=== PATIENT | female | born 1960 | race Caucasian/White ===

== ENCOUNTER 2017-06-10 07:44 | Emergency (ER) | payer BC ==
[~2017-06-10] VITALS: Ht 160 cm; Wt 75.5 kg
[2017-06-10] MEDS ORDERED: FLEXERIL10 MG PO (11:27)
[2017-06-10 11:31] VITALS: BP 147/82
== END 2017-06-10 11:43 | disposition home or self-care (01) ==
LOC: EME 07:44
DX: M54.16 Radiculopathy, lumbar region (principal)
CPT/HCPCS: 72131; 99281; 99285; J2270; J3010

== ENCOUNTER → 2017-06-16 | Outpatient (CLI) | payer BC ==
[~2017-06-16] MED LIST: FLEXERIL10 MG PO; HYZAAR 100-11 TABLET PO; IMODIUM A-D2 M2 PO; LYRICA100 MG PO; MULTIPLE VITAM1 EAC1 PO; OXYCODONE-ACET1 EACH PO; VITAMIN D35000 UNIT PO; XANAX0.25 MG PO
== END | disposition home or self-care (01) ==
LOC: CDC 14:02
DX: Z01.810 Encounter for preprocedural cardiovascular examination (principal); M54.16 Radiculopathy, lumbar region; R94.31 Abnormal electrocardiogram [ECG] [EKG]
CPT/HCPCS: 93000

== ENCOUNTER 2017-06-17 12:49 | Day surgery (SDC) | payer BC ==
[~2017-06-17] VITALS: Ht 154.9 cm; Wt 73.9 kg
[2017-06-17 13:50] VITALS: BP 138/67
[2017-06-17 19:30] VITALS: BP 161/78
[2017-06-17 20:19] VITALS: BP 146/77
== END 2017-06-17 20:25 | disposition home or self-care (01) ==
LOC: SDC
DX: M51.17 Intervertebral disc disorders with radiculopathy, lumbosacral region (principal); M48.061 Spinal stenosis, lumbar region without neurogenic claudication; M48.07 Spinal stenosis, lumbosacral region; R20.2 Paresthesia of skin; I10 Essential (primary) hypertension; F41.9 Anxiety disorder, unspecified
CPT/HCPCS: 72020; 76000; J0131; J0690; J1100; J1170; J1200; J2250; J2405; J2710; J3010; S0020